=== PATIENT | male | born 1995 | race Caucasian/White ===

== ENCOUNTER 2021-07-26 11:51 | Emergency (ER) | payer SELFPAY ==
[2021-07-26] MEDS ORDERED: MANNITOL 20% 500 ML IV ONE (12:14)
[2021-07-26 12:28] LABS: Absolute Lymphocytes (CBC) 7.5 K/uL (0.7-4.9); Hematocrit 47.4 % (39.6-49.0); Lymphocytes % 35.2 % (15.3-44.8); RBC Red Blood Cell Count 5.13 M/uL (4.33-5.43)
--- NOTE | 2021-07-26 12:41 | RAD REPORT ---
EXAM DESCRIPTION: RAD - Chest Single View - 07/26/2021 12:09 pm CLINICAL HISTORY: post intubation COMPARISON: No comparisons FINDINGS: Lines: The endotracheal tube terminates in the right mainstem bronchus. Recommend retracti on by 2.5 cm. Lungs: No evidence of edema or pneumonia. Pleural: No significant pleural effusions or pneumothorax. Cardiac: The heart size is within normal limits. Bones: No acute fractures. Other: IMPRESSION: No acute cardiopulmonary disease. Endotracheal tube in the right mainstem bronchus and s hould be retracted by 2.5 cm. COMMUNICATION The critical information above was relayed directly by me by telephone to Dr. Jeison epperson 07/26/21 at 1237 .
[2021-07-26 12:47] LABS: Albumin 4.5 g/dL (3.4-5.0); Bilirubin Direct 0.2 mg/dL (0-0.2); Bilirubin Total 0.7 mg/dL (0.2-1.0); Magnesium 2.4 mg/dL (1.8-2.4); Protein, Total 8.1 g/dL (6.4-8.2); Troponin High Sensitivity 9.1 pg/mL (<58.9)
[2021-07-26 12:51] LABS: Potassium 3.9 mmol/L (3.5-5.1)
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
[2021-07-26 12:58] LABS: Platelet Estimate ADEQ
[2021-07-26 12:59] LABS: Blood Morphology Comment NOT SEEN (NOT SEEN)
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
[2021-07-26 15:48] VITALS: TEMP 97.6
[2021-07-26 15:57] VITALS: BP 117/87
[2021-07-26 16:01] VITALS: O2SAT 0
== END 2021-07-26 15:29 ==
LOC: ER 11:51
PROC: 5A12012 Performance of Cardiac Output, Single, Manual (ICD-10-PCS; principal; 2021-07-26)
DX: S01.80XA Unspecified open wound of other part of head, initial encounter (principal); I46.8 Cardiac arrest due to other underlying condition; Z20.822 Contact with and (suspected) exposure to COVID-19
CPT/HCPCS: 36415; 70260; 70450; 71045; 72125; 80048; 80076; 83735; 83880; 84484; 85025; 86850; 86900; 86901; 93005; 94002; U0003